=== PATIENT | male | born 1990 | race Caucasian/White ===

== ENCOUNTER 2020-07-28 23:51 | Emergency (ER) | payer OTHER ==
[~2020-07-28] VITALS: Ht 185.4 cm; Wt 68.0 kg
[2020-07-28 23:56] VITALS: BP 108/57
--- NOTE | 2020-07-28 23:59 | Emergency Room Report ---
History of Present Illness General Chief Complaint: Medical Clearance Source: Patient Present Illness HPI Patient is a 30-year-old male past medical history of drug abuse who presents to the ER by [facility] and [facility] for medical clearance. Patient is under arrest for an assault and states that he took an unknown amount of fentanyl 6 hours prior to arrival. [employer] brought him in for clearance. Patient denies any acute complaints. He denies any fever or chills. He denies any chest pain or shortness of breath. He denies any trauma. He denies any focal weakness. He denies any rash. Patient states that he frequently abuses drugs. He is not suicidal or homicidal. 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: No Patient History Reviewed Nursing Documentation: PMH: Agreed; PSxH: Agreed Nursing Documentation-PMH Past Medical History: No History, Except For Review of Systems All Other Systems: negative except mentioned in HPI Physical Exam Vital Signs Date Time Temp Pulse Resp B/P (MAP) Pulse Ox O2 Delivery O2 Flow Rate FiO2 07/28/20 23:52 97.5 81 18 108/57 (74) 97 Room Air Sp02 EP Interpretation: reviewed, normal General Appearance: no apparent distress, alert, GCS 15, non-toxic, other - Poorly groomed Head: normocephalic, atraumatic Eyes: bilateral eye normal inspection, bilateral eye PERRL ENT: hearing grossly normal, normal pharynx, no angioedema, normal voice Neck: full range of motion, supple/symm/no masses Respiratory: chest non-tender, lungs clear, normal breath sounds, speaking full sentences Cardiovascular #1: regular rate, rhythm, no edema Gastrointestinal: normal bowel sounds, non tender, soft, non-distended, no guarding, no rebound Rectal: deferred Genitourinary: no CVA tenderness Musculoskeletal: normal range of motion, no calf tenderness, gait/station normal 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 He is ambulatory with steady gait. Patient has been medically cleared and has no acute complaints. He has been released to [facility]. Last Vital Signs Date Time Temp Pulse Resp B/P (MAP) Pulse Ox O2 Delivery O2 Flow Rate FiO2 07/28/20 23:52 97.5 81 18 108/57 (74) 97 Room Air Disposition: LAW ENFORCEMENT IN CUST Condition: Stable Referrals: [facility], [facility] Departure Forms: Longterm Clearance Patient Instructions: Finding Treatment for Addiction Additional Instructions: Patient is medically cleared for booking. Karie Winn M.D. Jul 28, 2020 23:59
[2020-07-29] VITALS: BP 110/60
== END 2020-07-29 00:05 ==
LOC: EDBD 23:51 → EMR 07-29 00:05
DX: F19.10 Other psychoactive substance abuse, uncomplicated (principal)
CPT/HCPCS: 99282